=== PATIENT | male | born 1985 | race Hispanic/Latino ===

== ENCOUNTER 2021-11-08 22:44 | Emergency (ER) | payer SELFPAY ==
[2021-11-09] MEDS ORDERED: Ketorolac Tromethamine 30 MG/ML VIAL ONE (00:07)
== END 2021-11-09 00:27 | disposition home or self-care (01) ==
LOC: CSHERS 22:44
DX: K02.9 Dental caries, unspecified (principal); F17.210 Nicotine dependence, cigarettes, uncomplicated
CPT/HCPCS: 96372; 99282; J1885